=== PATIENT | female | born 1940 | race Caucasian/White ===

== ENCOUNTER 2018-08-09 10:46 | Observation (INO) | payer MEDICARE, MEDICAID ==
[~2018-08-09] VITALS: Ht 149.9 cm; Wt 76.2 kg
[~2018-08-09 10:46] MED LIST: APAP500 PO; ASPIR 8181 MG PO; AZITHROMYCIN 2250 MG PO; CEFTIN 250 MG250 MG PO; CELEXA20 MG PO; CLONAZEPAM 0.50.5 M1 PO; DIPHENHIST50 MG PO; FENOFIBRATE200 MG PO; HYDROCHLOROTH12.5 M1 PO; LEVOTHYROXINE0.05 MG PO; MEDROLDOSEPACK PO; PEPCID20 MG PO; PREDNISONE 20 M20 MG PO; PROTONIX40 M1 PO; SYMBICORT80 MCG/4.1 INH; TOPROL XL100 MG PO; TYLENOL325 MG PO
[2018-08-09 10:48] VITALS: BP 95/59
[2018-08-09 12:49] LABS: ABSOLUTE EOSINOPHILS 0.1 thou/uL (0.0-0.7); ABSOLUTE LYMPHOCYTES 1.7 thou/uL (0.8-5.3); ABSOLUTE MONOCYTES 0.7 thou/uL (0.0-1.2); BASOPHILS 0.8 %; EOSINOPHILS 2.1 %; HEMATOCRIT 38.4 % (37.0-47.0); LYMPHOCYTES 30.4 %; MCH 31.8 pg (26.0-34.0); MCHC 33.8 g/dL (28.0-37.0); MCV 94.1 fL (80.0-100.0); MPV 9.9 fl. (7.2-11.1); NUCLEATED RBCS 0 /100WBC; PLATELET COUNT* 165 thou/uL (150-400); POLYS 54.7 %; RBC 4.09 mil/uL (4.20-5.00); RDW-CV 12.8 % (10.5-14.5); WBC 5.5 thou/uL (4.0-11.0)
[2018-08-09 13:10] LABS: ALBUMIN 3.2 g/dL (3.4-5.0); CALCIUM 9.4 mg/dL (8.5-10.1); CREATININE 0.9 mg/dL (0.6-1.3); POTASSIUM 3.9 mmol/L (3.5-5.1); TOTAL BILIRUBIN 0.2 mg/dL (<0.1-1.0); TOTAL PROTEIN 6.7 g/dL (6.4-8.2)
[2018-08-09 14:35] VITALS: BP 135/70
[2018-08-09 15:11] VITALS: BP 151/70
--- NOTE | 2018-08-09 15:47 | NUR ---
RECIEVIED REPORT FROM TRACEY RN IN ER OF EXPECTED TRANSFER AT 1432- DX: WEAKNESS; SCIATIC PAIN- PT ARRIVED TO ROOM 225 VIA CART WITH ASSISTANCE X1 TO BED AT 1450- MOLDING MANAGER PLACED ORDERED, TRACING SR- VS 97.9 19 151/70 65- PT A&O X4- CONTINENT OF BOWEL AND BLADDER- SBA WITH TRANSFERS- LCTA, RESP EVEN AND UN-LABORED- ABDOMEN SOFT/ROUND/NON-TENDER, BS X4 QUADS- PT REPORTS LAST BM 08/08/18- SKIN C/D/I- BRUISING NOTED TO LUE AND ABD R/T BLOOD THINNER- IV NOTED TO LEFT HAND INTACT AND SL- PT NOTED TO BE SUAREZ UPON ADMISSION R/T BEING HUNGARY AND REPORTS TO HAVE NOT BEEN OFFERED FOOD SINCE 1200- DIET NOTED AND FOOD GIVEN REQUESTED UPON ADMISSION- PT RATES PAIN TO BACK, LEG 5/10- REPOSITIONING AND RELAXATION IN PLACE- CALL LIGHT AND PERSONAL BELONGINGS WITH IN REACH- HOURLY ROUNDS IN PLACE R/T SAFETY/NEEDS-BED ALARM IN PLACE AND WORKING R/T SAFETY/NEEDS- ALL NEEDS MET AT THIS TIME-WCTM
--- NOTE | 2018-08-09 17:58 | EKG ---
[place] [address] ELECTROCARDIOGRAM REPORT Name: LEONARDO DAMON Room: [address] ADM IN [facility]#: [id number] Admission: 08/09/18 Attend Phys: Waylon Sherwood MD Discharge: Date of : 38 Report #: [id number] THIS REPORT FOR: //name// [facility] ED Test Date: 2018-08-09 Test Time: 12:53:00 Pat Name: LEONARDO DAMON Department: Room: [facility] Gender: F Deck Cadet: MS : 1940 Requested By: Landry Stuart Order Number: [id number] MD: Mohamud Francisco Measurements Intervals [place] Rate: 62 P: 17 [place]: 165 QRS: -35 QRSD: 113 T: 20 QT: 391 QTc: 397 Interpretive Statements Sinus rhythm Borderline IVCD with LAD Low voltage, precordial leads Compared to ECG 04/05/2016 19:31:38 No significant changes Electronically Signed On 08-09-2018 17:58:32 CDT by Mohamud Francisco [email or web address] <ELECTRONICALLY SIGNED> By: Mohamud Francisco MD, FACC 08/09/18 1758 1253 1253 Mohamud Francisco MD, [facility] /EPI
[2018-08-09 20:00] VITALS: BP 119/46
[2018-08-10] VITALS: BP 107/46
[2018-08-10 04:00] VITALS: BP 118/47
[2018-08-10 05:34] LABS: ABSOLUTE EOSINOPHILS 0.1 thou/uL (0.0-0.7); ABSOLUTE MONOCYTES 0.7 thou/uL (0.0-1.2); ABSOLUTE NEUTROPHILS 1.7 thou/uL (1.6-8.1); BASOPHILS 0.7 %; EOSINOPHILS 3.1 %; HEMATOCRIT 38.2 % (37.0-47.0); HEMOGLOBIN 12.7 gm/dL (12.0-15.0); LYMPHOCYTES 43.2 %; MCH 31.9 pg (26.0-34.0); MCHC 33.4 g/dL (28.0-37.0); MCV 95.8 fL (80.0-100.0); MONOCYTES 15.5 %; MPV 10.2 fl. (7.2-11.1); NUCLEATED RBCS 0 /100WBC; PLATELET COUNT* 148 thou/uL (150-400); POLYS 37.5 %; RBC 3.99 mil/uL (4.20-5.00); RDW-CV 13.1 % (10.5-14.5); WBC 4.6 thou/uL (4.0-11.0)
--- NOTE | 2018-08-10 05:46 | NUR ---
PATIENT RESTED IN BED. PATIENT DID NOT SHOW SIGNS OF DISTRESS. BED ALARM ON, FALL PRECAUTIONS IN PLACE, CALL LIGHT WITH IN REACH, HOURLY ROUNDING OBSERVED.
[2018-08-10 05:55] LABS: CALCIUM 9.1 mg/dL (8.5-10.1); CREATININE 0.7 mg/dL (0.6-1.3)
[2018-08-10 05:58] LABS: POTASSIUM 4.9 mmol/L (3.5-5.1)
[2018-08-10 08:15] VITALS: BP 135/61
[2018-08-10] MEDS ORDERED: MEDROL4 M1 PO (11:28)
[2018-08-10] MEDS ORDERED: ULTRAM 50MG TAB50 MG PO (11:29)
[2018-08-10] MEDS ORDERED: FLEXERIL PO (11:29)
[2018-08-10 11:30] VITALS: BP 135/61
--- NOTE | 2018-08-10 12:08 | NUR ---
MET WITH PT TO DISCUSS HOME SITUATION/DC PLANNING. PT LIVES AT [facility] IN [place]. SHE USE WALKER WITH SEAT AND BSC. DTR AND GRANDDTR ARE SUPPORTIVE AND ASSIST WITH ERRANDS, TRANSPORTATION AND SHOPPING. PT HAS IN HOME CARE THRU HOME CARE OF [facility]/[employer] FOR HOMEMAKER SERVICES. ORDERS NOTED FOR HH, DISCUSSED OPTIONS, WOULD LIKE TO USE [facility]. CALLED AND FAXED REFERRAL TO [facility]. PT HAPPY ABOUT GOING HOME
--- NOTE | 2018-08-10 13:12 | NUR ---
PATIENT DISCHARGED TO HOME WITH HOME HEALTH AT THIS TIME. SCRIPTS FOR FLEXERIL, TRAMADOL, AND MEDROL DOSE PACK GIVEN. IV REMOVED. PATIENT STATES SHE HAS APPT WITH PCP THURSDAY AND WILL MAKE APPT WITH PAIN MANAGEMENT SOON. HOME HEALTH SET UP PRIOR TO DC. DISCHARGED WITH GRANDDAUGHTER.
== END 2018-08-10 13:15 | disposition home health service (06) ==
LOC: M.ERS 10:46 → M.2W 12:34 → M.TBA-ER 12:34 → M.2W 12:34
PROVIDERS: Family Medicine; ADMIT Internal Medicine
DX: M54.30 Sciatica, unspecified side (principal); G89.29 Other chronic pain; R53.1 Weakness; I10 Essential (primary) hypertension; N39.0 Urinary tract infection, site not specified; F32.9 Major depressive disorder, single episode, unspecified; E03.9 Hypothyroidism, unspecified; Z90.710 Acquired absence of both cervix and uterus; Z87.891 Personal history of nicotine dependence; Z90.49 Acquired absence of other specified parts of digestive tract; Z98.890 Other specified postprocedural states

== ENCOUNTER → 2019-03-02 | Outpatient (CLI) | payer MEDICARE, MEDICAID ==
[~2019-03-02] MED LIST changes: +FLEXERIL PO; +MEDROL4 M1 PO; +ULTRAM 50MG TAB50 MG PO
== END ==
LOC: M.ULTRA 02-18 12:05
DX: E04.1 Nontoxic single thyroid nodule (principal); I65.21 Occlusion and stenosis of right carotid artery; E03.9 Hypothyroidism, unspecified; I24.0 Acute coronary thrombosis not resulting in myocardial infarction

== ENCOUNTER 2020-08-28 10:03 | Emergency (ER) | payer MEDICARE, MEDICAID ==
[~2020-08-28] VITALS: Ht 149.9 cm; Wt 91.5 kg
[2020-08-28 10:24] LABS: ABSOLUTE BASOPHILS 0.1 thou/uL (0.0-0.2); ABSOLUTE EOSINOPHILS 0.2 thou/uL (0.0-0.7); ABSOLUTE LYMPHOCYTES 2.2 thou/uL (0.8-5.3); ABSOLUTE MONOCYTES 0.7 thou/uL (0.0-1.2); ABSOLUTE NEUTROPHILS 4.4 thou/uL (1.6-8.1); BASOPHILS 0.9 %; EOSINOPHILS 2.9 %; HEMATOCRIT 46.1 % (37.0-47.0); HEMOGLOBIN 15.5 gm/dL (12.0-15.0); LYMPHOCYTES 28.9 %; MCH 31.7 pg (26.0-34.0); MCHC 33.7 g/dL (28.0-37.0); MCV 94.2 fL (80.0-100.0); MPV 9.8 fl. (7.2-11.1); NUCLEATED RBCS 0 /100WBC; PLATELET COUNT* 128 thou/uL (150-400); POLYS 58.3 %; RDW-CV 13.1 % (10.5-14.5); WBC 7.6 thou/uL (4.0-11.0)
[2020-08-28 10:38] LABS: CALCIUM 9.5 mg/dL (8.5-10.1); POTASSIUM 4.1 mmol/L (3.5-5.1)
[2020-08-28 10:43] LABS: ALBUMIN 3.3 g/dL (3.4-5.0); TOTAL BILIRUBIN 0.5 mg/dL (<0.1-1.0); TOTAL PROTEIN 7.2 g/dL (6.4-8.2)
[2020-08-28 10:44] LABS: APTT 25.6 Seconds (25.0-31.3); PROTIME 10.9 Seconds (9.20-11.50)
[2020-08-28 13:20] VITALS: BP 148/78
--- NOTE | 2020-08-28 16:11 | EKG ---
[place] [address] ELECTROCARDIOGRAM REPORT Name: LEONARDO DAMON Room: [facility]#: [id number] Admission: 08/28/20 Attend Phys: Discharge: 08/28/20 Date of : 38 Date of Service: 08/28/20 1029 Report #: [id number] THIS REPORT FOR: //name// [facility] ED Test Date: 2020-08-28 Test Time: 10:29:50 Pat Name: LEONARDO DAMON Department: Room: Gender: F Distribution Analyst: CCD : 1940 Requested By: Landry Stuart Order Number: [id number] MD: Erick Adam Measurements Intervals [place] Rate: 72 P: 15 [place]: 160 QRS: -38 QRSD: 109 T: 29 QT: 361 QTc: 396 Interpretive Statements Sinus rhythm Left axis deviation compatible left anterior hemiblock Abnormal R-wave progression, late transition Compared to ECG 08/09/2018 12:53:00 Left-axis deviation persists Electronically Signed On 08-28-2020 16:11:45 RN REGISTRY by Erick Adam [email or web address] <ELECTRONICALLY SIGNED> By: Erick Adam MD, FACC 08/28/20 1611 1029 1029 Erick Adam MD, [facility] /EPI
== END 2020-08-28 13:20 | disposition home or self-care (01) ==
LOC: M.ERS 10:03
PROVIDERS: Family Medicine
DX: S01.01XA Laceration without foreign body of scalp, initial encounter (principal); I10 Essential (primary) hypertension; E03.9 Hypothyroidism, unspecified; F17.210 Nicotine dependence, cigarettes, uncomplicated; Z90.710 Acquired absence of both cervix and uterus; Z90.89 Acquired absence of other organs; Z85.810 Personal history of malignant neoplasm of tongue; Z88.5 Allergy status to narcotic agent; Z88.2 Allergy status to sulfonamides; W22.8XXA Striking against or struck by other objects, initial encounter; Y93.89 Activity, other specified; Y92.89 Other specified places as the place of occurrence of the external cause; Y99.8 Other external cause status

== ENCOUNTER 2021-04-06 09:42 | Emergency (ER) | payer MEDICARE, MEDICAID ==
[~2021-04-06] VITALS: Ht 152.4 cm; Wt 81.7 kg
[2021-04-06] MEDS ORDERED: VITAMIN D21250 MCG PO (09:53)
[2021-04-06] MEDS ORDERED: FISH OIL 1,0001 EAC9 PO (09:53)
[2021-04-06] MEDS ORDERED: NEURONTIN100 MG PO (09:53)
[2021-04-06 10:30] LABS: ABSOLUTE EOSINOPHILS 0.1 thou/uL (0.0-0.7); ABSOLUTE LYMPHOCYTES 1.6 thou/uL (0.8-5.3); ABSOLUTE MONOCYTES 0.6 thou/uL (0.0-1.2); ABSOLUTE NEUTROPHILS 4.5 thou/uL (1.6-8.1); BASOPHILS 0.7 %; EOSINOPHILS 1.7 %; HEMATOCRIT 41.9 % (37.0-47.0); HEMOGLOBIN 14.5 gm/dL (12.0-15.0); LYMPHOCYTES 23.9 %; MCH 31.9 pg (26.0-34.0); MCHC 34.6 g/dL (28.0-37.0); MCV 92.3 fL (80.0-100.0); MONOCYTES 8.7 %; NUCLEATED RBCS 0 /100WBC; PLATELET COUNT* 107 thou/uL (150-400); RBC 4.54 mil/uL (4.20-5.00); RDW-CV 12.9 % (10.5-14.5); WBC 6.9 thou/uL (4.0-11.0)
[2021-04-06 10:39] LABS: CALCIUM 8.8 mg/dL (8.5-10.1); CREATININE 0.9 mg/dL (0.6-1.3); POTASSIUM 3.1 mmol/L (3.5-5.1)
[2021-04-06 10:50] LABS: ALBUMIN 3.2 g/dL (3.4-5.0); TOTAL BILIRUBIN 0.3 mg/dL (<0.1-1.0); TOTAL PROTEIN 6.5 g/dL (6.4-8.2)
[2021-04-06 11:32] VITALS: BP 133/55
--- NOTE | 2021-04-07 11:48 | EKG ---
[place] [address] ELECTROCARDIOGRAM REPORT Name: LEONARDO DAMON Room: [facility]#: [id number] Admission: 04/06/21 Attend Phys: Discharge: 04/06/21 Date of : 38 Date of Service: 04/06/21 1003 Report #: [id number] THIS REPORT FOR: //name// [facility] ED Test Date: 2021-04-06 Test Time: 10:03:12 Pat Name: LEONARDO DAMON Department: Room: Gender: Fan Blade Truer: [facility] : 1940 Requested By: Landry Stuart Order Number: [id number] MD: Alejandro Mejia Measurements Intervals [place] Rate: 71 P: 24 [place]: 136 QRS: -45 QRSD: 110 T: 71 QT: 391 QTc: 425 Interpretive Statements Sinus rhythm Left anterior fascicular block Abnormal R-wave progression, late transition Compared to ECG 08/28/2020 10:29:50 Left-axis deviation no longer present Electronically Signed On 04-07-2021 11:48:26 CDT by Alejandro Mejia [email or web address] <ELECTRONICALLY SIGNED> By: Alejandro Mejia MD, FAC 04/07/21 1148 1003 1003 Alejandro Mejia MD, [facility] /EPI
== END 2021-04-06 11:33 | disposition home or self-care (01) ==
LOC: M.ERS 09:42
PROVIDERS: Family Medicine
DX: R42 Dizziness and giddiness (principal); I10 Essential (primary) hypertension; E03.9 Hypothyroidism, unspecified; F17.210 Nicotine dependence, cigarettes, uncomplicated; Z90.710 Acquired absence of both cervix and uterus; Z90.89 Acquired absence of other organs; Z88.5 Allergy status to narcotic agent; Z88.2 Allergy status to sulfonamides

== ENCOUNTER 2021-07-31 10:54 | Inpatient (IN) | payer MEDICARE, MEDICAID ==
[~2021-07-31] VITALS: Ht 152.4 cm; Wt 79.4 kg
[~2021-07-31 10:54] MED LIST changes: +FISH OIL 1,0001 EAC9 PO; +NEURONTIN300 MG PO; +VITAMIN D21250 MCG PO
[2021-07-31 10:58] VITALS: BP 162/74
[2021-07-31] MEDS ORDERED: CLONAZEPAM0.25 MG PO (11:02)
--- NOTE | 2021-07-31 11:22 | EKG ---
[place] [address] ELECTROCARDIOGRAM REPORT Name: LEONARDO DAMON Room: [facility].#: [id number] Admission: Attend Phys: Discharge: Date of : 38 Date of Service: 07/31/21 1102 Report #: [id number] THIS REPORT FOR: //name// [facility] ED Test Date: 2021-07-31 Test Time: 11:02:59 Pat Name: LEONARDO DAMON Department: Room: Gender: F District Operations Manager: : 1940 Requested By: Fredrick Trent Order Number: [id number] MD: Mohamud Francisco Measurements Intervals [place] Rate: 69 P: [place]: QRS: -27 QRSD: 109 T: 136 QT: 385 QTc: 413 Interpretive Statements Junctional rhythm Low voltage, precordial leads Abnormal R-wave progression, late transition LVH with secondary repolarization abnormality Compared to ECG 04/06/2021 10:03:12 Junctional rhythm now present Low QRS voltage now present Left ventricular hypertrophy now present Early repolarization now present Sinus rhythm no longer present Electronically Signed On 07-31-2021 11:22:21 CDT by Mohamud Francisco [email or web address] <ELECTRONICALLY SIGNED> By: Mohamud Francisco MD, FACC 07/31/211121 01 01 Mohamud Francisco MD, FACC /EPI
[2021-07-31 11:31] LABS: URINE BILIRUBIN NEGATIVE (Negative); URINE BLOOD TRACE (Negative); URINE CLARITY CLEAR; URINE COLOR YELLOW; URINE GLUCOSE-RANDOM NEGATIVE (Negative); URINE KETONES NEGATIVE (Negative); URINE LEUKOCYTES-REFLEX 3+ (Negative); URINE NITRITE-REFLEX NEGATIVE (Negative); URINE PROTEIN NEGATIVE (Negative); URINE SPECIFIC GRAVITY 1.015 (1.005-1.030); URINE UROBILINOGEN 0.2 E.U./dl (0.2-1.0)
[2021-07-31 11:44] LABS: SQUAMOUS 0-3 Few /LPF (0-3); URINE WBC-REFLEX 6-15 Few /HPF (0-5)
[2021-07-31 11:45] LABS: CASTS None Seen /LPF (None Seen); CRYSTALS None Seen /LPF (None Seen); MUCUS 0-3 Light strn/LPF (None Seen); URINE RBC 0-2 Rare /HPF (0-2)
[2021-07-31 11:49] LABS: ABSOLUTE BASOPHILS 0.1 thou/uL (0.0-0.2); ABSOLUTE EOSINOPHILS 0.2 thou/uL (0.0-0.7); ABSOLUTE LYMPHOCYTES 1.6 thou/uL (0.8-5.3); ABSOLUTE MONOCYTES 0.6 thou/uL (0.0-1.2); ABSOLUTE NEUTROPHILS 4.1 thou/uL (1.6-8.1); BASOPHILS 0.8 %; EOSINOPHILS 2.7 %; HEMATOCRIT 41.7 % (37.0-47.0); LYMPHOCYTES 24.6 %; MCH 29.8 pg (26.0-34.0); MCHC 33.6 g/dL (28.0-37.0); MCV 88.8 fL (80.0-100.0); MPV 10.3 fl. (7.2-11.1); NUCLEATED RBCS 0 /100WBC; PLATELET COUNT* 126 thou/uL (150-400); POLYS 62.9 %; RBC 4.69 mil/uL (4.20-5.00); RDW-CV 13.2 % (10.5-14.5); WBC 6.4 thou/uL (4.0-11.0)
[2021-07-31 11:58] LABS: CALCIUM 8.9 mg/dL (8.5-10.1); CREATININE 0.9 mg/dL (0.6-1.3); POTASSIUM 3.7 mmol/L (3.5-5.1)
[2021-07-31 12:02] LABS: ALBUMIN 3.2 g/dL (3.4-5.0); TOTAL BILIRUBIN 0.3 mg/dL (<0.1-1.0); TOTAL PROTEIN 6.6 g/dL (6.4-8.2)
[2021-07-31 16:50] VITALS: BP 144/66
--- NOTE | 2021-07-31 18:09 | NUR ---
PT ADMITTED TO FLOOR AROUND 1700. AOX4, VSS, CALL LIGHT AND PERSONAL BELONGINGS PLACED WITHIN REACH. PT TOLERATED DINNER WITHOUT DIFFICULTY, SR ON MONITOR, DENIES PAIN. PT. IN STABLE CONDTION, IN BED, AT THIS TIME.
[2021-07-31 20:00] VITALS: BP 142/58
[2021-08-01] VITALS (9 sets, daily range): BP systolic 141–193; BP diastolic 63–104
--- NOTE | 2021-08-01 03:03 | NUR ---
PT ALERT ORIENTED. UP WITH ASSIST TO BSC. ON RA. ENHANCED ENVIRONMENTAL OPERATOR TRACING SR. IVF NS @100ML/HR.
--- NOTE | 2021-08-01 10:30 | NUR ---
CM ASSESSMENT: PT A&O, NORMALLY INDEPENDENT WITH ADL'S AND ACTIVE. PT RESID[facility] AT [facility] PT USES ROLLATOR WALKER FOR MOBILITY. PT INFORMS THAT SHE HAS HOMEMAKER ASSISTANCE AND THEY ASSIST HER WITH HIGH SCHOOL DIRECTOR WEEKLY. PT INFORMS THAT SHE IS CURRENTLY ON-SERVICE WITH [facility] AND PLANS TO RESUME HER HH WITH [facility] AT D/C. PT HAS 0 HX OF SNF. CM WILL REMAIN AVAILABLE TO ASSIST AND FOLLOW NEEDED. [facility] PHONE: [phone] FAX:[phone]
--- NOTE | 2021-08-01 11:07 | 2DMMODE ---
[place] [address] 2 D/M-MODE ECHOCARDIOGRAM Name: LEONARDO DAMON HERNANDEZ Room: [address] IN [facility]#: [id number] Admission: 07/31/21 Attend Phys: Nini Walsh Discharge: Date of : 38 Date of Service: 08/01/21 1106 Report #: [id number] THIS REPORT FOR: cc: FAM - No family physician/PCP FAM - No family physician/PCP Mahad Sawyer MD [facility] ~ APPROVED REPORT Study performed: 08/01/2021 10:04:22 EXAM: Comprehensive 2D, Doppler, and color-flow Echocardiogram Patient Location: In-Patient Room #: [facility] Status: routine BSA: 1.76 HR: 74 bpm BP: 186/71 mmHg Rhythm: NSR Other Information Study Quality: Good Indications Syncope 2D Dimensions IVSd: 12.14 (7-11mm) LVOT Diam: 19.55 (18-24mm) LVDd: 45.36 mm PWd: 11.29 (7-11mm) Ascending Ao: 32.07 (22-36mm) LVDs: 28.50 (25-40mm) Aortic Root: 32.07 mm Volumes Left Atrial Volume (Systole) LA ESV Index: 20.10 mL/m2 Aortic Valve AoV Peak Jaden.: 0.92 m/s AO Peak Gr.: 3.41 mmHg LVOT Max P.34 mmHg AO Mean Gr.: 1.84 mmHg LVOT Mean P.48 mmHg LVOT Max V: 0.91 m/s AO V2 VTI: 20.65 cm LVOT Mean V: 0.55 m/s DEBBIE (VTI): 3.16 cm2 LVOT V1 VTI: 21.70 [place] [address] 2 D/M-MODE ECHOCARDIOGRAM Name: LEONARDO DAMON Room: [address] IN ..#: [id number] Admission: 07/31/21 Attend Phys: Nini Walsh Discharge: Date of : 38 Date of Service: 08/01/21 1106 Report #: [id number] Mitral Valve E/A Ratio: 1.09 MV Decel. Time: 181.49 ms MV E Max Jaden.: 1.09 m/s MV PHT: 52.63 ms MVA (PHT): 4.18 cm2 TDI E/Lateral E': 10.90 E/Medial E': 9.91 Medial E' Jaden.: 0.11 m/s Lateral E' Jaden.: 0.10 m/s Pulmonary Valve PV Peak Jaden.: 0.66 m/s PV Peak Gr.: 1.76 mmHg Tricuspid Valve RAP Estimate: 5.00 mmHg TR Peak Gr.: 27.88 mmHg RVSP: 32.00 mmHg PA Pressure: 32.00 mmHg Left Ventricle The left ventricle is normal size. There is normal LV segmental wall motion. There is normal left ventricular wall thickness. Left ventricular systolic function is normal. The left ventricular ejection fraction is within the normal range. LVEF is 60-65%. The left ventricular diastolic function is normal. Right Ventricle The right ventricle is normal size. The right ventricular systolic function is normal. Atria The left atrium size is normal. The right atrium size is normal. Aortic Valve The aortic valve is normal in structure. No aortic regurgitation is present. There is no aortic valvular stenosis. Mitral Valve The mitral valve is normal in structure. Trace mitral regurgitation. No evidence of mitral valve stenosis. Tricuspid Valve The tricuspid valve is normal in structure. Trace to mild tricuspid regurgitation. [place] [address] 2 D/M-MODE ECHOCARDIOGRAM Name: LEONARDO DAMON Room: [address] IN ..#: [id number] Admission: 07/31/21 Attend Phys: Nini Walsh Discharge: Date of : 38 Date of Service: 08/01/21 1106 Report #: [id number] Pulmonic Valve The pulmonary valve is normal in structure. There is no pulmonic valvular regurgitation. Great Vessels The aortic root is normal in size. IVC is normal in size and collapses >50% with inspiration. Pericardium There is no pericardial effusion. <Conclusion> LVEF is 60-65%. The left ventricular diastolic function is normal. The left ventricle is normal size. There is normal left ventricular wall thickness. There is normal LV segmental wall motion. The aortic valve is normal in structure. No aortic regurgitation is present. There is no aortic valvular stenosis. Trace mitral regurgitation. No evidence of mitral valve stenosis. The mitral valve is normal in structure. Trace to mild tricuspid regurgitation. Mild pulmonary hypertension. The pulmonary valve is normal in structure. There is no pulmonic valvular regurgitation. <ELECTRONICALLY SIGNED> By: Mahad Sawyer MD, FACC 08/01/211105 05 05 Mahad Sawyer MD, FACC /INF
--- NOTE | 2021-08-01 12:13 | NUR ---
orthostatics negative. Physician notified . Lying 179/76 pulse 71 Sitting 184/74 pulse 76 Standing 193/104 pulse 94
--- NOTE | 2021-08-01 12:50 | NUR ---
THIS RN CLARIFIED ORDER WITH DR WHITING RE: HTN MEDS. STATED GIVE AMLODIPINE, HOLD ON LOSARTAN UNTIL SHIFT CHANGE. IF NO RESPONSE, OK TO GIVE THE LOSARTAN.
[2021-08-01] MEDS ORDERED: VITAMIN D3125 MC1 PO (16:00)
[2021-08-01] MEDS ORDERED: OLANZAPINE10 M1 PO (16:01)
[2021-08-01] MEDS ORDERED: ULTRAM50 MG PO (16:02)
--- NOTE | 2021-08-01 16:04 | NUR ---
pts home health company faxed pts current med list. Updated in computer by this RN. dr webster notified.
[2021-08-02 00:22] VITALS: BP 99/52
--- NOTE | 2021-08-02 02:38 | NUR ---
PT ALERT ORIENTED. UP TO BR WITH ASSIST OF ONE. DIRECTOR OF STRATEGY & MOBILE TRACING SR. PT STATED HE THROAT FELT SORE. LOZENGES PROVIDED. HYDROCODONE OFFERED. PT REFUSED.
[2021-08-02 04:55] VITALS: BP 105/56
[2021-08-02 08:00] VITALS: BP 190/86
--- NOTE | 2021-08-02 08:41 | NUR ---
THIS RN WALKED INTO PTS ROOM. PT WAS VISIBLY UPSET. PT HAD JUST VOMITED, STATED 'NOBODY IS DOING ANYTHING FOR ME HERE. I DONT WANT TO TAKE ANY MEDICATIONS BECAUSE WHAT YOURE GIVING ME ISNT WORKING. NO MORE PILLS AND MEDICINES.' PT STATES HER LYMPH NODES IN HER NECK ARE SWOLLEN, PT IS SWOLLEN UP TO HER BREAST, SHE SAYS THIS IS TOTALLY NEW. PT DOES HAVE A BLOATED-APPEARING ABDOMEN, SOFT, NONTENDER AT THIS TIME. PT WAS GIVEN IV ZOFRAN. PT REFUSING ALL OTHER MEDICATIONS AT THIS TIME DESPITE THIS RN EDUCATING PT ON BP, ABX.
[2021-08-02 11:30] VITALS: BP 129/60
--- NOTE | 2021-08-02 13:08 | NUR ---
PER VELOCITY SHOOTER, 24H URINE TO BEGIN AT 0600. LAB COLLECTION CONTAINER OBTAIND BY THIS RN AND IN PT BATHROOM.
--- NOTE | 2021-08-02 14:18 | NUR ---
PLAN OF CARE: PHYSICIAN INFORMS OF PLAN FOR THE PT TO POSSIBLY D/C HOME WITH HER PREVIOUS HH TOMORROW. CM SPOKE TO [facility] TO INFORM OF PLAN TO D.C PT TOMORROW, AND THEY AGREED TO RESUME HH FOR THE PT AT D/C. CALL AND FAX PT'S D/C HH ORDERS TO [facility] WHEN AVAILABLE. CM WILL REMAIN AVAILABLE TO ASSIST AND FOLLOW NEEDED. [facility] PHONE: [phone] FAX: [phone]
[2021-08-02 14:43] LABS: ABSOLUTE BASOPHILS 0.1 thou/uL (0.0-0.2); ABSOLUTE EOSINOPHILS 0.1 thou/uL (0.0-0.7); ABSOLUTE LYMPHOCYTES 1.8 thou/uL (0.8-5.3); ABSOLUTE MONOCYTES 0.5 thou/uL (0.0-1.2); ABSOLUTE NEUTROPHILS 3.5 thou/uL (1.6-8.1); EOSINOPHILS 1.4 %; HEMATOCRIT 38.5 % (37.0-47.0); HEMOGLOBIN 12.7 gm/dL (12.0-15.0); LYMPHOCYTES 30.1 %; MCH 29.9 pg (26.0-34.0); MCHC 33.1 g/dL (28.0-37.0); MCV 90.4 fL (80.0-100.0); MONOCYTES 8.4 %; MPV 10.2 fl. (7.2-11.1); NUCLEATED RBCS 0 /100WBC; PLATELET COUNT* 108 thou/uL (150-400); POLYS 59.1 %; RBC 4.26 mil/uL (4.20-5.00); RDW-CV 12.9 % (10.5-14.5); WBC 5.9 thou/uL (4.0-11.0)
[2021-08-02 14:56] LABS: CALCIUM 8.7 mg/dL (8.5-10.1); CREATININE 0.9 mg/dL (0.6-1.3); MAGNESIUM 2.3 mg/dL (1.8-2.4); POTASSIUM 3.8 mmol/L (3.5-5.1); TOTAL BILIRUBIN 0.2 mg/dL (<0.1-1.0); TOTAL PROTEIN 6.4 g/dL (6.4-8.2)
--- NOTE | 2021-08-02 15:00 | NUR ---
PT REFUSING TO BE STUCK AGAIN FOR LAB, SAYS THEY HAVE STUCK HER TOO MANY TIMES AND SHE CANT TAKE THE PAIN. LABS ADDED ON TO MORNING DRAW WHICH PT IS AGREEABLE TO.
[2021-08-02 15:43] VITALS: BP 141/65
[2021-08-02 15:57] LABS: ESR (SEDRATE) 27 mm/hr (0-30)
[2021-08-02 19:45] VITALS: BP 142/49
[2021-08-03] VITALS: BP 131/65
--- NOTE | 2021-08-03 05:50 | NUR ---
PT AO X4 LYING IN BED FOR ASSESSMENT, SHE HAS A LAUNDRY LIST OF THINGS THAT ARE WRONG AND FEELS NOTHING HAS BEEN DONE FOR HER, SHE HAD SEVERAL TESTS AND LAB YESTERDAY AND ADMITS THAT SHE TURNED SOMEONE AWAY UNTIL TODAY BECAUSE IT WAS "TOO MUCH" IN ONE DAY. PT COMPLAINS OF STOMACH PRESSURE, SHE HAS LAXATIVES AND STOOL SOFTENERS ON HER EMAR FOR TONIGHT. SHE REFUSED SOME MEDS STATING "THAT IS WHY MY STOMACH HURTS, FROM ALL THE MEDICINE THEY ARE GIVING ME". PT HEART NSR IN 70-80s, LUNGS ARE DIMINISHED WITH SHALLOW BREATHING ON ROOM AIR. SHE AMBULATES STANDBY TO BS. PT WILL COMPLETE 24HR URINE FOR CREAT CLEARANCE TODAY. BED ALARM ON FOR SAFETY, CALL LIGHT IN REACH.
[2021-08-03 08:00] VITALS: BP 151/77
[2021-08-03 12:00] VITALS: BP 153/80
--- NOTE | 2021-08-03 13:23 | NUR ---
ASSUMED CARE OF PT AT 0730. PT A&0X4, DENIES ANY PAIN OR SHORTNESS OF BREATH AT THIS TIME. TRACING SR ON THE CAR PARK ATTENDANT. ON RA SAT UPPER 90'S. PT UP WITH 1 ASSIST TO BATHROOM-WEAKNESS NOTED. [address] STARTED AT 0845. PT GOAL FOR TODAY IS INCREASE ACTIVITY, UP TO CHAIR FOR MEALS AND MONITOR ORTHOSTATS. GI AND NEURO CONSULT IN PLACE. AM ASSESSMENT CHARTED. MEDICATIONS PER DEC. PT REPOSITIONS SELF WITH REMINDERS. HOURLY ROUNDING OBSERVED. BED IN LOW POSITION. BED ALARM IN PLACE. FALL PRECAUTIONS IN PLACE. CALL LIGHT WITHIN REACH. WILL CONTINUE PLAN OF CARE.
[2021-08-03] MEDS ORDERED: VITAMIN B-1100 M2 PO (13:30)
[2021-08-03] MEDS ORDERED: COZAAR 50 MG TA50 M1 PO (13:30)
[2021-08-03] MEDS ORDERED: SYNTHROID50 MCG PO (13:30)
[2021-08-03] MEDS ORDERED: VITAMIN C500 M2 PO (13:30)
[2021-08-03] MEDS ORDERED: CEFDINIR300 MG PO (13:30)
[2021-08-03 13:47] VITALS: BP 153/80
[2021-08-03 13:55] VITALS: BP 153/80
[2021-08-03 14:27] VITALS: BP 153/80
--- NOTE | 2021-08-03 14:40 | NUR ---
DR WHITING HERE TO SEE PT. DISCHARGE ORDERS RECEIVED. DISCHARGE INSTRUCTIONS, CARE NOTES, E SCRIPTS AND FOLLOW UP APPTS GIVEN TO PT. PT COMMUNICATES UNDERSTANDING OF DISCHARGE TEACHING. IV AND EXPEDITER CLERK REMOVED. PT DISCHARGED WITH ALL BELONGINGS AND PAPEROWORK VIA WHEELCHAIR WITH NURSING STAFF TO DAUGHTER OWN PERSONAL VEHICLE. PT DISCHARGED TO HOME WITH HOME HEALTH-HOME HEALTH ORDERS FAXED TO [facility].
== END 2021-08-03 14:41 | disposition home health service (06) | DRG 690 ==
LOC: M.ERS 10:54 → M.TBA-ER 15:07 → M.2W 15:07
PROVIDERS: Physician Assistant; ADMIT Internal Medicine; ATTEND Internal Medicine
DX: N30.00 Acute cystitis without hematuria (principal); E86.0 Dehydration; I95.1 Orthostatic hypotension; Z20.822 Contact with and (suspected) exposure to COVID-19; I10 Essential (primary) hypertension; E03.9 Hypothyroidism, unspecified; G62.9 Polyneuropathy, unspecified; I65.29 Occlusion and stenosis of unspecified carotid artery; K21.9 Gastro-esophageal reflux disease without esophagitis; K59.00 Constipation, unspecified; H81.8X9 Other disorders of vestibular function, unspecified ear; Z90.710 Acquired absence of both cervix and uterus; Z88.6 Allergy status to analgesic agent; Z88.2 Allergy status to sulfonamides; Z87.891 Personal history of nicotine dependence; Z82.49 Family history of ischemic heart disease and other diseases of the circulatory system; Z85.810 Personal history of malignant neoplasm of tongue; Z28.21 Immunization not carried out because of patient refusal

== ENCOUNTER 2021-12-02 16:40 | Emergency (ER) | payer MEDICARE, MEDICAID ==
[~2021-12-02] VITALS: Ht 152.4 cm; Wt 79.4 kg
[~2021-12-02 16:40] MED LIST changes: +CEFDINIR300 MG PO; +CLONAZEPAM0.25 MG PO; +COZAAR 50 MG TA50 M1 PO; +OLANZAPINE10 M1 PO; +SYNTHROID50 MCG PO; +ULTRAM50 MG PO; +VITAMIN B-1100 M2 PO; +VITAMIN C500 M2 PO; +VITAMIN D3125 MC1 PO
[2021-12-02 17:39] LABS: HEMOGLOBIN 13.7 gm/dL (12.0-15.0); MCH 29.8 pg (26.0-34.0); MCHC 33.5 g/dL (28.0-37.0); MCV 89.1 fL (80.0-100.0); NUCLEATED RBCS 0 /100WBC; PLATELET COUNT* 70 thou/uL (150-400); RDW-CV 13.9 % (10.5-14.5)
[2021-12-02 17:56] LABS: CALCIUM 9.1 mg/dL (8.5-10.1); POTASSIUM 3.7 mmol/L (3.5-5.1)
[2021-12-02 18:06] LABS: ALBUMIN 3.3 g/dL (3.4-5.0); TOTAL BILIRUBIN 0.2 mg/dL (<0.1-1.0); TOTAL PROTEIN 6.2 g/dL (6.4-8.2)
[2021-12-02 18:15] LABS: INFLUENZA A ANTIGEN Negative (Negative); INFLUENZA B ANTIGEN Negative (Negative)
[2021-12-02 18:22] LABS: ABSOLUTE LYMPHOCYTES 3.2 thou/uL (0.8-5.3)
[2021-12-02 18:23] LABS: ABSOLUTE MONOCYTES 0.7 thou/uL (0.0-1.2); ABSOLUTE NEUTROPHILS 2.4 thou/uL (1.6-8.1); PLATELET ESTIMATE ADEQUATE
[2021-12-02 18:24] LABS: ABSOLUTE EOSINOPHILS 1.7 thou/uL (0.0-0.7)
[2021-12-02] MEDS ORDERED: DOXYCYCLINE 10100 M2 PO (19:30)
[2021-12-02] MEDS ORDERED: PREDNISONE 10 M10 MG PO (19:30)
[2021-12-02] MEDS ORDERED: PROTONIX40 M2 PO (19:30)
[2021-12-02 19:58] VITALS: BP 148/70
--- NOTE | 2021-12-03 11:31 | EKG ---
[place] [address] ELECTROCARDIOGRAM REPORT Name: LEONARDO DAMON Room: [facility]#: [id number] Admission: 12/02/21 Attend Phys: Discharge: 12/02/21 Date of : 38 Date of Service: 12/02/21 1649 Report #: [id number] THIS REPORT FOR: //name// [facility] ED Test Date: 2021-12-02 Test Time: 16:49:38 Pat Name: LEONARDO DAMON Department: Room: Gender: Spool Sander: : 1940 Requested By: Yeyo Spears Order Number: [id number] MD: Mohamud Francisco Measurements Intervals [place] Rate: 89 P: 42 CT: 162 QRS: -40 QRSD: 104 T: 79 QT: 355 QTc: 432 Interpretive Statements Sinus rhythm Left anterior fascicular block Abnormal R-wave progression, late transition Compared to ECG 07/31/2021 11:02:59 Left anterior fascicular block now present Junctional rhythm no longer present Left ventricular hypertrophy no longer present Early repolarization no longer present Electronically Signed On 12-03-2021 11:31:07 SLICING MACHINE FEEDER by Mohamud Francisco [email or web address] <ELECTRONICALLY SIGNED> By: Mohamud Francisco MD, [facility] 12/03/21 1131 1649 1649 Mohamud Francisco MD, [facility] /EPI
== END 2021-12-02 19:59 | disposition home or self-care (01) ==
LOC: M.ERS 16:40
PROVIDERS: Physician Assistant Medical
DX: R06.02 Shortness of breath (principal); Z20.822 Contact with and (suspected) exposure to COVID-19; Z79.891 Long term (current) use of opiate analgesic; Z79.1 Long term (current) use of non-steroidal anti-inflammatories (NSAID); Z79.899 Other long term (current) drug therapy; Z88.5 Allergy status to narcotic agent; Z88.2 Allergy status to sulfonamides; Z87.891 Personal history of nicotine dependence